=== PATIENT | female | born 1990 | race Hispanic/Latino ===

== ENCOUNTER 2020-04-28 10:26 | Emergency (ER) | payer MEDICAID, SELFPAY ==
[2020-04-28 10:56] LABS: #Eosinphils 0.1 thou/uL (0.0-0.7); #Lymphocytes 1.8 thou/uL (1.20-3.40); #Monocytes 0.5 thou/uL (0.11-0.59); #Neutrophils 5.7 thou/uL (1.40-6.50); %Basophils 0.5 % (0.0-1.0); %Eosinophils 1.2 % (0.0-10.0); %Lymphocytes 21.8 % (21.0-51.0); %Neutrophils 70.5 % (42.0-75.0); Hemoglobin 12.1 g/dL (12.0-16.0); Mean Corpuscular HGB CONC 33.3 g/dL (32.0-36.0); Mean Corpuscular Hemoglobin 30.7 pg (27.0-31.0); Mean Corpuscular Volume 92.2 fL (78.0-98.0); Mean Platelet Volume 7.8 fL (7.4-10.4); Platelet Count 282 thou/uL (130-400); RBC Distribution Width 12.5 % (11.5-14.5); Red Blood Cell (RBC) Count 3.95 mill/uL (4.20-5.40); White Blood Cell (WBC) Count 8.1 thou/uL (4.8-10.8)
--- NOTE | 2020-04-28 11:42 | ULT ---
ULTRASOUND OBSTETRICAL COMPLETE: DATE: 04/28/2020 HISTORY: 29-year-old female with abdominal pain and vaginal bleeding FINDINGS: number: [place] lie: Cephalic Maternal cervix: 4 cm. Endocervical canal appears mildly dilated to approximately 0.3 cm caliber aline led with hypoechoic material which could be amniotic fluid or blood clots or mucous plug.. Placenta: Posterior. Difficult to separate the placenta from an approximately 6.5 x 4.5 cm moderately hypoechoic masslike structure at inferior edge of placenta, and covering the internal cervical os. This is probably a Gregg Nolasco contraction. Other possibilities include uterine fibroid and less li marcio hematoma. Amniotic fluid volume: Subjectively within normal limits. heart rate: 160 bpm It is too early to visualize anatomy in detail biometry: Biparietal diameter (BPD): 2.3 cm 13 w 6 d Head circumference (HC): 9.2 cm 14 w 1 d Abdominal circumference (AC): 7.1 cm 13 w 5 d Femur length (FL): 1.2 cm 13 w 4 d Average ultrasound age (AUA): 13 w 5 d Estimated date of delivery (VIOLETTE): 10/29/2020 IMPRESSION: 1) Live early 2nd trimester intrauterine gestation. 2) Estimated gestational age of 13 weeks, 5 days 3) masslike structure from the inferior edge of placenta to internal cervical os. Favored to be a Bra xton Nolasco contraction. Other possibilities include uterine fibroid, and less likely hematoma. 4) questionable mildly dilated endocervical canal 5) recommend follow-up
[2020-04-28 14:07] LABS: Bacteria/HPF 3+ HPF (None Seen); Bilirubin Negative (Negative); Blood, Urine Trace (Negative); Clarity Clear (Clear); Glucose, Urine (Dipstick) Normal (Negative); Ketone, Urine 20 mg/dL (Negative); Leukocyte Negative Leu/uL (Negative); Nitrite Negative (Negative); Protein, Urine (Dipstick) Negative (Neg-Trace); RBC/HPF 0-3 HPF (0-3); Specific Gravity, Urine 1.008 (1.002-1.036); Squamous Epithelial 0-3 HPF (0-3); Urobilinogen Normal mg/dL (Less than 2)
== END 2020-04-28 14:35 | disposition home or self-care (01) ==
LOC: ERS 10:26
DX: O20.9 Hemorrhage in early pregnancy, unspecified (principal); Z3A.13 13 weeks gestation of pregnancy; Z87.891 Personal history of nicotine dependence
CPT/HCPCS: 36415; 76815; 81003; 81015; 84702; 85025; 86900; 86901; 87086

== ENCOUNTER 2020-06-11 08:53 | Outpatient (CLI) | payer OTHER ==
--- NOTE | 2020-06-11 11:28 | ULT ---
EXAM: OB ultrasound COMPARISON: 04/28/2020 HISTORY: Positive . Evaluate anatomy and cervical length. TECHNIQUE: Multiplanar grayscale and color Doppler transabdominal sonographic images are obtained. FINDINGS: There is a single intrauterine gestation in cephalic presentation. Cardiac Doppler demonstr ates heart tones with a heart rate of 158 beats per minute. The placenta is located posteriorly without evidence of placenta previa. There is a normal amount of amniotic fluid with an a mniotic fluid index of 11.96 centimeters. The cervical length based on transabdominal imaging measures 4.6 centimeters. biometry measurements: BPD 4.45 cm -- 19 weeks 4 days HC 16.68 cm -- 19 weeks 3 days AC 13.56 cm -- 19 weeks 1 day FL 3.13 cm -- 19 weeks 6 days The estimated gestational age by ultrasound is 19 weeks 4 days with an VIOLETTE on11/01/2020. Gestational ag e by the last menstrual period is 20 weeks. The estimated weight by ultrasound is 288 g (10 ounces). This represents 15 percentile for feta l weight. There has been interval growth compared to prior study. A 4 chambered heart is visualized. The cerebellum, visualized portions of the spine, kidneys, u rinary bladder, and cord insertion demonstrate a normal sonographic appearance. A three-vessel cord is not visualized, but there is flow on either side of the urinary bladder sugges ting a three-vessel cord.. No anomalies are seen. There are prominent vessels in the right adnexa likely due to intrauterine gestation. The ovaries are unable to be visualized bilaterally and there is shadowing from bowel gas seen in each adnexal region. IMPRESSION: 1. Single intrauterine gestation in cephalic presentation with heart tones documented. Estimat ed gestational age by ultrasound is 19 weeks 4 days with VIOLETTE on 11/01/2020. 2. Estimated weight is 288 g (10 ounces). 3. Amniotic fluid index is 11.96 centimeters.
== END 2020-06-11 08:54 | disposition home or self-care (01) ==
LOC: BICULT 08:53
PROVIDERS: ATTEND Family Medicine
DX: O09.892 Supervision of other high risk pregnancies, second trimester (principal); Z3A.19 19 weeks gestation of pregnancy
CPT/HCPCS: 76805

== ENCOUNTER 2022-12-05 07:42 | Emergency (ER) | payer OTHER | END 2022-12-05 09:03 | disposition home or self-care (01) | LOC: ERS 07:42 | DX: S20.211A Contusion of right front wall of thorax, initial encounter (principal); F17.210 Nicotine dependence, cigarettes, uncomplicated; Y04.8XXA Assault by other bodily force, initial encounter | CPT/HCPCS: 71046 ==